=== PATIENT | female | born 2000 | race Hispanic/Latino ===

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

== ENCOUNTER 2022-03-25 20:06 | Emergency (ER) | payer MEDICAID, OTHER ==
[~2022-03-25] VITALS: Ht 157.5 cm; Wt 69.9 kg
[2022-03-25 20:37] LABS: BASOPHILS % (AUTO) 0.7 % (0.0-5.0); LYMPHOCYTES % (AUTO) 22.6 % (21.0-51.0); MEAN CORPUSCULAR HEMOGLOBIN 27.3 pg (27.0-33.0); MEAN CORPUSCULAR HGB CONC 31.9 g/dL (32.0-36.0); MEAN CORPUSCULAR VOLUME 85.5 fL (80-100); MONOCYTES % (AUTO) 5.6 % (3.0-13.0); NEUTROPHILS % (AUTO) 66.8 % (40.0-77.0); PLATELET COUNT (AUTO) 332 K/uL (130-400); RED BLOOD CELL COUNT(AUTO) 4.91 MIL/uL (4.00-5.50); RED CELL DISTRIBUTION WIDTH 13.9 % (11.0-15.5); WHITE BLOOD COUNT (AUTO) 12.4 K/uL (4.8-10.8)
[2022-03-25 20:39] LABS: APPEARANCE,URINE CLOUDY (CLEAR); BILIRUBIN,URINE NEGATIVE (NEGATIVE); COLOR,URINE YELLOW (YELLOW); GLUCOSE, URINE (UA) NEGATIVE (NEGATIVE); KETONES,URINE NEGATIVE (NEGATIVE); LEUKOCYTE ESTERASE ,URINE MODERATE (NEGATIVE); NITRATE,URINE NEGATIVE (NEGATIVE); OCCULT BLOOD,URINE LARGE (NEGATIVE); PROTEIN,URINE 30 mg/dL (NEGATIVE); UROBILINOGEN,URINE 0.2 mg/dL (0.2-1.0)
[2022-03-25 20:40] LABS: HCG,QUALITATIVE URINE NEGATIVE (NEGATIVE)
[2022-03-25 20:45] LABS: WBC,URINE 26-50 /HPF (0-1)
[2022-03-25 20:46] LABS: BACTERIA,URINE Few /HPF (None Seen); SQUAMOUS EPITHELIAL CELL,UR Few /HPF (0-2)
[2022-03-25 20:57] LABS: CREATININE 1.1 mg/dL (0.5-1.5); POTASSIUM 3.7 mmol/L (3.5-5.1)
[2022-03-25] MEDS ORDERED: KETOROLAC 15MG/ML VIAL (15MG/ML) IV ONE (21:00)
[2022-03-25] MEDS ORDERED: 0.9%NACL 1000ML 1,000 ML IV ONE (21:00)
[2022-03-25 21:04] LABS: ALBUMIN 4.6 g/dL (3.5-5.0); TOTAL PROTEIN, SERUM 8.6 g/dL (6.0-8.3)
[2022-03-25] MEDS ORDERED: IOHEXOL 350 MG/ML 100ML INFUS..BTL IV ONE (21:07)
[2022-03-25] MEDS ORDERED: CEFTRIAXONE 1G VIAL IM ONE (22:30)
[2022-03-25] MEDS ORDERED: AZITHROMYCIN 250 MG TABLET PO ONE (22:30)
[2022-03-25] MEDS ORDERED: CEPH500B PO (22:42)
[2022-03-25 23:00] VITALS: BP 109/53
== END 2022-03-25 23:10 | disposition home or self-care (01) ==
LOC: EDH 20:06
DX: N39.0 Urinary tract infection, site not specified (principal); N93.8 Other specified abnormal uterine and vaginal bleeding; J45.909 Unspecified asthma, uncomplicated
CPT/HCPCS: 99285; 74177; 96374; 76856; 96361; 80053; 85025; 86850; 86900; 86901; 87210; 87077; 87088; 87186; 87797; 87486; 81001; 81025; 36415; 96372; J7030; J0696; J1885; Q9967

== ENCOUNTER → 2023-06-20 | Emergency (ER) | payer MEDICAID ==
[~2023-06-20] VITALS: Ht 157.5 cm; Wt 73.5 kg
[~2023-06-20] MED LIST: CEPH500B PO
[2023-06-21 00:05] VITALS: BP 128/67; PULSE 78; RESP 18; O2SAT 98
== END ==
LOC: EDH 23:22
DX: Z30.9 Encounter for contraceptive management, unspecified (principal); J45.909 Unspecified asthma, uncomplicated; F17.200 Nicotine dependence, unspecified, uncomplicated
CPT/HCPCS: 99281; 99282